=== PATIENT | male | born 1945 | race African-American/Black ===

== ENCOUNTER 2017-07-28 18:01 | Inpatient (IN) | payer OTHER ==
[~2017-07-28] VITALS: Ht 172.7 cm; Wt 71.9 kg
[2017-07-28 19:56] LABS: BASOPHIL % 0.8 % (0-2); RED CELL DISTRIBUTION WIDTH 13.1 % (11.5-14.5)
[2017-07-28 20:05] LABS: PLATELET COUNT 111 x10^3mcL (130-400)
[2017-07-28 20:25] VITALS: BP 135/65
[2017-07-28 20:46] LABS: CALCIUM 9.1 mg/dL (8.5-10.1); CARBON DIOXIDE 25.6 mmol/L (21-32); CHLORIDE SERUM 100 mmol/L (98-107); CREATININE SERUM 1.5 mg/dL (0.7-1.3); GLUCOSE SERUM 227 mg/dL (74-106); POTASSIUM SERUM 3.7 mmol/L (3.5-5.1); SODIUM SERUM 137 mmol/L (136-145)
[2017-07-28 20:51] LABS: ALBUMIN 3.7 g/dL (3.4-5.0); ALKALINE PHOSPHATASE 67 U/L (46-116); ALT/SGPT 21 U/L (16-63); AST/SGOT 22 U/L (15-37); BILIRUBIN TOTAL 0.5 mg/dL (0.20-1.00)
[2017-07-28 21:00] LABS: CHOLESTEROL/HDL RATIO 4.7; PHOSPHOROUS 3.6 mg/dL (2.5-4.9)
[2017-07-28 21:17] LABS: T3 TOTAL 0.74 ng/mL
[2017-07-28 21:19] LABS: FREE T4 1.03 ng/dL (0.76-1.46)
[2017-07-28 21:27] VITALS: BP 135/65
[2017-07-28] MEDS ORDERED: ZESTRIL20 MG PO (22:05)
[2017-07-28] MEDS ORDERED: AMARYL2 MG PO (22:06)
[2017-07-28] MEDS ORDERED: METOPROLOL TART50 MG PO (22:07)
[2017-07-28] MEDS ORDERED: CHLORTHALIDONE25 MG PO (22:07)
[2017-07-29 04:20] LABS: CALCIUM 9.1 mg/dL (8.5-10.1); CARBON DIOXIDE 29.7 mmol/L (21-32); CHLORIDE SERUM 102 mmol/L (98-107); CREATININE SERUM 1.4 mg/dL (0.7-1.3); GLUCOSE SERUM 145 mg/dL (74-106); POTASSIUM SERUM 3.5 mmol/L (3.5-5.1); SODIUM SERUM 139 mmol/L (136-145)
[2017-07-29 04:27] LABS: BASOPHIL % 0.5 % (0-2); RED CELL DISTRIBUTION WIDTH 13.1 % (11.5-14.5)
[2017-07-29 04:28] LABS: PLATELET COUNT 102 x10^3mcL (130-400)
[2017-07-29 05:42] VITALS: BP 142/61
[2017-07-29 09:06] VITALS: BP 137/62
[2017-07-29 09:22] LABS: UA SPECIFIC GRAVITY <=1.005 (1.005-1.035); microscopic required? YES; urine erythrocyte 2+ (NEGATIVE)
[2017-07-29 09:49] LABS: AMPHETAMINE QUAL UR NONE DETECTED (NEG <=1000)
[2017-07-29 14:02] VITALS: BP 139/64
[2017-07-29 21:54] VITALS: BP 145/65
[2017-07-30] VITALS (7 sets, daily range): BP systolic 144–174; BP diastolic 69–88
[2017-07-30 05:57] LABS: BASOPHIL % 0.4 % (0-2)
[2017-07-30 06:18] LABS: CALCIUM 8.8 mg/dL (8.5-10.1); CARBON DIOXIDE 28.3 mmol/L (21-32); CHLORIDE SERUM 106 mmol/L (98-107); CREATININE SERUM 1.5 mg/dL (0.7-1.3); GLUCOSE SERUM 100 mg/dL (74-106); MAGNESIUM 1.8 mg/dL (1.8-2.4); PHOSPHOROUS 3.3 mg/dL (2.5-4.9); POTASSIUM SERUM 3.6 mmol/L (3.5-5.1); SODIUM SERUM 141 mmol/L (136-145)
[2017-07-30 06:38] LABS: PLATELET COUNT 93 x10^3mcL (130-400)
[2017-07-30] MEDS ORDERED: ROC1I IV (12:23)
[2017-07-30] MEDS ORDERED: MECLIZINE HCL12.5 MG PO (13:22)
[2017-07-30] MEDS ORDERED: ECO81 PO (14:23)
[2017-07-30] MEDS ORDERED: LIPI10 PO (14:25)
[2017-07-30] MEDS ORDERED: GLIMEPIRIDE2 M1 PO (14:26)
[2017-07-30] MEDS ORDERED: COL100 PO (14:26)
[2017-07-30] MEDS ORDERED: TRE400 PO (16:30)
[2017-07-30] MEDS ORDERED: LAC PO (16:32)
== END 2017-07-30 20:46 | DRG 347 ==
LOC: ED 18:01 → DU 19:15
PROVIDERS: Emergency Medicine; ADMIT Family Medicine Sports Medicine
DX: M51.36 Other intervertebral disc degeneration, lumbar region (principal); N17.0 Acute kidney failure with tubular necrosis; E44.0 Moderate protein-calorie malnutrition; E11.51 Type 2 diabetes mellitus with diabetic peripheral angiopathy without gangrene; D69.6 Thrombocytopenia, unspecified; D68.69 Other thrombophilia; N39.0 Urinary tract infection, site not specified; E02 Subclinical iodine-deficiency hypothyroidism; E78.5 Hyperlipidemia, unspecified; R31.9 Hematuria, unspecified; Z68.24 Body mass index [BMI] 24.0-24.9, adult; Z79.84 Long term (current) use of oral hypoglycemic drugs; I70.213 Atherosclerosis of native arteries of extremities with intermittent claudication, bilateral legs
CPT/HCPCS: 82962; 83880; 84439; 90658; 97110-GP; 97116-GP; 97530-GP; J0696; J7030; Q0092